=== PATIENT | male | born 1965 | race Caucasian/White ===

== ENCOUNTER 2018-03-17 11:21 | Day surgery (SDC) | payer MEDICAID ==
[2018-03-17] MEDS ORDERED: Sodium Chloride 0.9% 1,000 ML IV SCH (11:30)
[2018-03-17] MEDS ORDERED: Sodium Chloride 0.9% 10 ML Syringe FLUSH PRN (11:30)
[2018-03-17] MEDS ORDERED: Pantoprazole 40 MG Vial IVPUSH ONE (11:31)
[2018-03-17] MEDS ORDERED: Ondansetron 4 MG/2 ML SDV IVPUSH ONE (11:39)
--- NOTE | 2018-03-17 12:58 | EDM.PDOC ---
ED HPI GENERAL MEDICAL PROBLEM - General Chief Complaint: Chest Pain Stated Complaint: BLEEDING ULCERS Time Seen by Provider: 03/17/18 11:21 Source of Information: Reports: Patient, Family History Limitations: Reports: No Limitations - History of Present Illness INITIAL COMMENTS - FREE TEXT/NARRATIVE: 53 y.o.w.m with a H/O lower Esophageal ulcers, came to the ed due to black stool for a week with a distension of his abdomen. No pulsating mass. Pt denies ETOH but used drugs in the distant past. Pt was brought to the ED by his SO. Pt looks pale, denies h/o esophageal varicosis. Pt feels dizzy and light headed at times. He was on PPI, he did not take his meds for a while. No N/D. py feel dizzy at time c/o of CP going down his abdomen. Denies H/O AAA. has "cold feet" a times. No other acute medical issues BP 122/92 RR 19 Pulse ox 100% on RA Pulse 61 Temp 37.0 Onset Date: 03/12/18 Onset Time: 07:00 Duration: Day(s):, Intermittent Location: Reports: Abdomen Quality: Reports: Ache, Burning, Dull, Throbbing Severity: Moderate Improves with: Reports: Rest Worsens with: Reports: Movement Context: Reports: Other (H/O Upper GI bleed) Associated Symptoms: Reports: Other (distension pf abdomen, low BP) L anterior chest & abdomen Pain Score (Numeric/FACES): 3 - Related Data Allergies Allergy/AdvReac Type Severity Reaction Status Date / Time hydromorphone [From Dilaudid] Allergy Rash Verified 03/17/18 11:44 Home Meds: Home Meds Aspirin [Claudia Chewable] 81 mg PO DAILY PRN 03/17/18 [History] ED ROS GENERAL - Review of Systems Review Of Systems: See Below Constitutional: Reports: Weakness HEENT: Reports: No Symptoms Respiratory: Reports: No Symptoms Cardiovascular: Reports: Chest Pain Endocrine: Reports: No Symptoms GI/Abdominal: Reports: Abdominal Pain, Distension : Reports: No Symptoms Musculoskeletal: Reports: No Symptoms Skin: Reports: No Symptoms Neurological: Reports: No Symptoms Psychiatric: Reports: No Symptoms Hematologic/Lymphatic: Reports: No Symptoms Immunologic: Reports: No Symptoms ED EXAM, GENERAL - Physical Exam Exam: See Below Exam Limited By: No Limitations General Appearance: Alert, WD/WN, Moderate Distress Eye Exam: Bilateral Eye: Normal Inspection Ears: Normal External Exam Ear Exam: Bilateral Ear: Auricle Normal Nose: Normal Inspection, Normal Mucosa, No Blood Throat/Mouth: Normal Lips, Normal Voice, No Airway Compromise Head: Atraumatic, Normocephalic Neck: Normal Inspection, Supple, Non-Tender, Full Range of Motion Respiratory/Chest: No Respiratory Distress, Lungs Clear, Normal Breath Sounds, Chest Non-Tender Cardiovascular: Normal Peripheral Pulses, Regular Rate, Rhythm, No Edema, No Gallop, No JVD, No Murmur, No Rub Peripheral Pulses: 1+: Brachial (L) GI/Abdominal: Distended, Tender (Male) Exam: Deferred Rectal (Males) Exam: Black Stool Back Exam: Normal Inspection Extremities: Normal Inspection, Normal Range of Motion Neurological: Alert, Oriented Psychiatric: Normal Affect, Normal Mood Skin Exam: Warm, Dry, Intact, Pallor Lymphatic: No Adenopathy EKG INTERPRETATION EKG Date: 03/17/18 Time: 11:35 Rhythm: NSR Rate (Beats/Min): 87 [place]: Normal P-Wave: Present QRS: Normal ST-T: Normal QT: Normal Comparison: NA - No Prior EKG Course - Vital Signs Text/Narrative:: 53 y.o.w.m with a H/O lower Esophageal ulcers, came to the ed due to black stool for a week with a distension of his abdomen. No pulsating mass. Pt denies ETOH but used drugs in the distant past. Pt was brought to the ED by his SO. Pt looks pale, denies h/o esophageal varicosis. Pt feels dizzy and light headed at times. He was on PPI, he did not take his meds for a while. No N/D. py feel dizzy at time c/o of CP going down his abdomen. Denies H/O AAA. has "cold feet" a times. No other acute medical issues BP 122/92 RR 19 Pulse ox 100% on RA Pulse 61 Temp 37.0 PE: WNWD W M. Pale and weak apperaing Labs: HGB 6.9 HCT 22.5 WBC 11.5 BMP Nl except BUN is 24 Troponin 0.017 GFR > 60 Imaging: Chest/abdomen: 8 cm Hiatal hernia. No AAA Impression: Upper GI bleed, Hiatal hernia, noncompliance, Anemia Tx: Protonix, PRBC, NS, Zofran Reexam: Improved 12.55 pm Consultation: Dr. Beth, Surgeon: Will do an upper endoscopy at 3 pm today Plan: Pt was transferred to Dr. Beth for further care and orders addendum; Dr. Beth performed an upper GI endoscopy and did not see an active bleed but an ulcer at his gastro esophageal junction (please see his report). Pt came back to the ED, he received his second unit of PRBC here in te ED. His HGB was 8.1 2 hours after the 2 unis of blood were completed. Pt was doing fine in [facility] ed, Plan: D/C with instructions Computer is blocked, can not give written instruction! Gave service captain prescription for omeprazole. Last Recorded V/S: Last Vital Signs Temp 37.1 C 03/17/18 19:30 Pulse 77 03/17/18 19:30 Resp 16 03/17/18 17:31 BP 132/74 03/17/18 19:30 Pulse Ox 100 03/17/18 19:30 - Orders/Labs/Meds Orders: Active Orders 24 hr Category Date Time Status Patient Status [ADT] Routine ADT 03/17/18 15:00 Active EKG Documentation Completion [RC] ASDIRECTED Care 03/17/18 11:31 Active Patient to Empty Bladder [RC] ASDIRECTED Care 03/17/18 15:00 Active Verify Patient Consent Obtain [RC] ASDIRECTED Care 03/17/18 15:00 Active Nothing Per Oral Diet [DIET] Diet 03/17/18 Breakfast Ordered CTA Abd Pelv w Cont [CT] Stat Exams 03/17/18 15:01 Taken Lactated Ringers [Ringers, Lactated] 1,000 ml Med 03/17/18 15:00 Active IV ASDIRECTED Sodium Chloride 0.9% [Normal Saline] 1,000 ml Med 03/17/18 11:30 Active IV ASDIRECTED Sodium Chloride 0.9% [Normal Saline] 250 ml Med 03/17/18 14:30 Active IV ASDIRECTED Sodium Chloride 0.9% [Saline Flush] Med 03/17/18 11:30 Active 10 ml FLUSH ASDIRECTED PRN Peripheral IV Insertion Adult [OM.PC] Routine Oth 03/17/18 11:30 Ordered Resuscitation Status Routine Resus Stat 03/17/18 14:39 Ordered EKG 12 Lead [EK] Routine Ther 03/17/18 11:30 Ordered Medication Orders Sodium Chloride (Normal Saline) 1,000 mls @ 125 mls/hr IV ASDIRECTED TYRA Last Admin: 03/17/18 11:46 Dose: 125 mls/hr Sodium Chloride (Normal Saline) 250 mls @ 100 mls/hr IV ASDIRECTED TYRA Last Admin: 03/17/18 14:19 Dose: 100 mls/hr Lactated Ringer's (Ringers, Lactated) 1,000 mls @ 125 mls/hr IV ASDIRECTED TYRA Last Admin: 03/17/18 15:17 Dose: 125 mls/hr Sodium Chloride (Saline Flush) 10 ml FLUSH ASDIRECTED PRN PRN Reason: Keep Vein Open Last Admin: 03/17/18 14:28 Dose: 10 ml Labs: Laboratory Tests 03/17/18 03/17/18 03/17/18 Range/Units 11:55 11:55 11:55 WBC 11.4 (4.5-12.0) X10-3/uL RBC 3.15 L (4.30-5.75) x10(6)uL Hgb 6.9 L* (11.5-15.5) g/dL Hct 22.4 L (30.0-51.3) % MCV 70.9 L (80-96) fL MCH 21.8 L (27.7-33.6) pg MCHC 30.8 L (32.2-35.4) g/dL RDW 22.7 H (11.5-15.5) % Plt Count 687 H (125-369) X10(3)uL MPV 9.0 (7.4-10.4) fL Neut % (Auto) 79.7 (46-82) % Lymph % (Auto) 11.0 L (13-37) % [place] % (Auto) 7.0 (4-12) % Eos % (Auto) 2 (1.0-5.0) % Baso % (Auto) 1 (0-2) % Neut # (Auto) 9.0 H (1.6-8.3) # Lymph # (Auto) 1.3 (0.6-5.0) # [place] # (Auto) 0.8 (0.0-1.3) # Eos # (Auto) 0.2 (0.0-0.8) # Baso # (Auto) 0.1 (0.0-0.2) # PT 9.8 (8.7-11.1) INR 1.01 (0.89-1.13) Sodium 140 (135-145) mmol/L Potassium 4.3 (3.5-5.3) mmol/L Chloride 105 (100-110) mmol/L Carbon Dioxide 27 (21-32) mmol/L BUN 24 H (7-18) mg/dL Creatinine 1.0 (0.70-1.30) mg/dL Est Cr Clr Drug Dosing TNP Estimated GFR (MDRD) > 60 (>60) BUN/Creatinine Ratio 24.0 H (9-20) Glucose 96 (80-116) mg/dL Calcium 8.6 (8.6-10.2) mg/dL Total Bilirubin (0.1-1.3) mg/dL Direct Bilirubin (0.10-0.20) mg/dL AST (5-25) IU/L ALT (12-36) U/L Alkaline Phosphatase (56-112) IU/L Troponin I (<0.017-0.056) ng/mL Total Protein (6.0-8.0) g/dL Albumin (3.5-5.2) g/dL Amylase (25-115) U/L Urine Color (YELLOW) Urine Appearance (CLEAR) Urine pH (5.0-6.5) Ur Specific [place] (1.010-1.025) Urine Protein (NEGATIVE) mg/dL Urine Glucose (UA) (NEGATIVE) mg/dL Urine Ketones (NEGATIVE) mg/dL Urine Occult Blood (NEGATIVE) Urine Nitrite (NEGATIVE) Urine Bilirubin (NEGATIVE) Urine Urobilinogen (NEGATIVE) mg/dL Ur Leukocyte Esterase (NEGATIVE) Urine RBC (0) Urine WBC (0) Ur Squamous Epith Cells (NS,R,O) Urine Bacteria (NS) Hyaline Casts (NS) Blood Type Gel Antibody Screen Crossmatch 03/17/18 03/17/18 03/17/18 Range/Units 11:55 11:55 11:55 WBC (4.5-12.0) X10-3/uL RBC (4.30-5.75) x10(6)uL Hgb (11.5-15.5) g/dL Hct (30.0-51.3) % MCV (80-96) fL MCH (27.7-33.6) pg MCHC (32.2-35.4) g/dL RDW (11.5-15.5) % Plt Count (125-369) X10(3)uL MPV (7.4-10.4) fL Neut % (Auto) (46-82) % Lymph % (Auto) (13-37) % [place] % (Auto) (4-12) % Eos % (Auto) (1.0-5.0) % Baso % (Auto) (0-2) % Neut # (Auto) (1.6-8.3) # Lymph # (Auto) (0.6-5.0) # [place] # (Auto) (0.0-1.3) # Eos # (Auto) (0.0-0.8) # Baso # (Auto) (0.0-0.2) # PT (8.7-11.1) INR (0.89-1.13) Sodium (135-145) mmol/L Potassium (3.5-5.3) mmol/L Chloride (100-110) mmol/L Carbon Dioxide (21-32) mmol/L BUN (7-18) mg/dL Creatinine (0.70-1.30) mg/dL Est Cr Clr Drug Dosing Estimated GFR (MDRD) (>60) BUN/Creatinine Ratio (9-20) Glucose (80-116) mg/dL Calcium (8.6-10.2) mg/dL Total Bilirubin 0.2 (0.1-1.3) mg/dL Direct Bilirubin 0.06 L (0.10-0.20) mg/dL AST 14 (5-25) IU/L ALT 17 (12-36) U/L Alkaline Phosphatase 63 (56-112) IU/L Troponin I < 0.017 L (<0.017-0.056) ng/mL Total Protein 7.3 (6.0-8.0) g/dL Albumin 3.6 (3.5-5.2) g/dL Amylase 47 (25-115) U/L Urine Color (YELLOW) Urine Appearance (CLEAR) Urine pH (5.0-6.5) Ur Specific [place] (1.010-1.025) Urine Protein (NEGATIVE) mg/dL Urine Glucose (UA) (NEGATIVE) mg/dL Urine Ketones (NEGATIVE) mg/dL Urine Occult Blood (NEGATIVE) Urine Nitrite (NEGATIVE) Urine Bilirubin (NEGATIVE) Urine Urobilinogen (NEGATIVE) mg/dL Ur Leukocyte Esterase (NEGATIVE) Urine RBC (0) Urine WBC (0) Ur Squamous Epith Cells (NS,R,O) Urine Bacteria (NS) Hyaline Casts (NS) Blood Type A POSITIVE Gel Antibody Screen Negative Crossmatch See Detail 03/17/18 03/17/18 Range/Units 16:07 22:00 WBC 8.9 (4.5-12.0) X10-3/uL RBC 3.40 L (4.30-5.75) x10(6)uL Hgb 8.1 L (11.5-15.5) g/dL Hct 25.7 L (30.0-51.3) % MCV 75.6 L (80-96) fL MCH 23.9 L (27.7-33.6) pg MCHC 31.6 L (32.2-35.4) g/dL RDW 23.1 H (11.5-15.5) % Plt Count 542 H (125-369) X10(3)uL MPV (7.4-10.4) fL Neut % (Auto) (46-82) % Lymph % (Auto) (13-37) % [place] % (Auto) (4-12) % Eos % (Auto) (1.0-5.0) % Baso % (Auto) (0-2) % Neut # (Auto) (1.6-8.3) # Lymph # (Auto) (0.6-5.0) # [place] # (Auto) (0.0-1.3) # Eos # (Auto) (0.0-0.8) # Baso # (Auto) (0.0-0.2) # PT (8.7-11.1) INR (0.89-1.13) Sodium (135-145) mmol/L Potassium (3.5-5.3) mmol/L Chloride (100-110) mmol/L Carbon Dioxide (21-32) mmol/L BUN (7-18) mg/dL Creatinine (0.70-1.30) mg/dL Est Cr Clr Drug Dosing Estimated GFR (MDRD) (>60) BUN/Creatinine Ratio (9-20) Glucose (80-116) mg/dL Calcium (8.6-10.2) mg/dL Total Bilirubin (0.1-1.3) mg/dL Direct Bilirubin (0.10-0.20) mg/dL AST (5-25) IU/L ALT (12-36) U/L Alkaline Phosphatase (56-112) IU/L Troponin I (<0.017-0.056) ng/mL Total Protein (6.0-8.0) g/dL Albumin (3.5-5.2) g/dL Amylase (25-115) U/L Urine Color Yellow (YELLOW) Urine Appearance Clear (CLEAR) Urine pH 5.0 (5.0-6.5) Ur Specific [place] 1.020 (1.010-1.025) Urine Protein Negative (NEGATIVE) mg/dL Urine Glucose (UA) Normal (NEGATIVE) mg/dL Urine Ketones Negative (NEGATIVE) mg/dL Urine Occult Blood Negative (NEGATIVE) Urine Nitrite Negative (NEGATIVE) Urine Bilirubin Negative (NEGATIVE) Urine Urobilinogen Normal (NEGATIVE) mg/dL Ur Leukocyte Esterase Negative (NEGATIVE) Urine RBC 0-5 (0) Urine WBC 0-5 (0) Ur Squamous Epith Cells Few H (NS,R,O) Urine Bacteria Few H (NS) Hyaline Casts Few H (NS) Blood Type Gel Antibody Screen Crossmatch Meds: Medications Generic Name Dose Route Start Last Admin Trade Name Freq PRN Reason Stop Dose Admin Sodium Chloride 1,000 mls @ 125 mls/hr 03/17/18 11:30 03/17/18 11:46 Normal Saline IV 125 mls/hr ASDIRECTED TYRA Administration Sodium Chloride 250 mls @ 100 mls/hr 03/17/18 14:30 03/17/18 14:19 Normal Saline IV 100 mls/hr ASDIRECTED TYRA Administration Lactated Ringer's 1,000 mls @ 125 mls/hr 03/17/18 15:00 03/17/18 15:17 Ringers, Lactated IV 125 mls/hr ASDIRECTED TYRA Administration Sodium Chloride 10 ml 03/17/18 11:30 03/17/18 14:28 Saline Flush FLUSH 10 ml ASDIRECTED PRN Administration Keep Vein Open Discontinued Medications Generic Name Dose Route Start Last Admin Trade Name Michaelq PRN Reason Stop Dose Admin Iopamidol 100 ml 03/17/18 14:41 03/17/18 14:46 Isovue-370 (76%) IV 03/17/18 14:42 93 ml ONETIME ONE Administration Ondansetron HCl 8 mg 03/17/18 11:39 03/17/18 11:50 Zofran IVPUSH 03/17/18 11:40 8 mg ONETIME ONE Administration Pantoprazole Sodium 80 mg 03/17/18 11:31 03/17/18 11:41 Protonix Iv IVPUSH 03/17/18 11:32 80 mg .BOLUS ONE Administration Departure - Departure Time of Disposition: 22:49 Disposition: Home, Self-Care 01 Condition: Good Clinical Impression: Esophageal ulcer Qualifiers: Esophageal ulcer bleeding: without bleeding Qualified Code(s): K22.10 - Ulcer of esophagus without bleeding - My Orders Last 24 Hours: My Active Orders 03/17/18 11:30 Sodium Chloride 0.9% [Normal Saline] 1,000 ml IV ASDIRECTED Sodium Chloride 0.9% [Saline Flush] 10 ml FLUSH ASDIRECTED PRN Peripheral IV Insertion Adult [OM.PC] Routine EKG 12 Lead [EK] Routine 03/17/18 11:31 EKG Documentation Completion [RC] ASDIRECTED 03/17/18 14:30 Sodium Chloride 0.9% [Normal Saline] 250 ml IV ASDIRECTED 03/17/18 15:01 CTA Abd Pelv w Cont [CT] Stat - Assessment/Plan Last 24 Hours: My Active Orders 03/17/18 11:30 Sodium Chloride 0.9% [Normal Saline] 1,000 ml IV ASDIRECTED Sodium Chloride 0.9% [Saline Flush] 10 ml FLUSH ASDIRECTED PRN Peripheral IV Insertion Adult [OM.PC] Routine EKG 12 Lead [EK] Routine 03/17/18 11:31 EKG Documentation Completion [RC] ASDIRECTED 03/17/18 14:30 Sodium Chloride 0.9% [Normal Saline] 250 ml IV ASDIRECTED 03/17/18 15:01 CTA Abd Pelv w Cont [CT] Stat
[2018-03-17] MEDS ORDERED: Sodium Chloride 0.9% 250 ML IV SCH (14:30)
[2018-03-17] MEDS ORDERED: Iopamidol 755 Mg/ML 100 ML Bottle IV ONE (14:41)
--- NOTE | 2018-03-17 14:57 | CR ---
INDICATION: Upper GI bleed. CHEST, ONE VIEW, FRONTAL: An AP upright view of the chest was obtained - no comparisons. There is what appears to be a large fixed hiatal hernia, which measures approximately 87 mm craniocaudad by 122 mm transversely. The heart is generous in size and may be slightly enlarged. Overlying EKG leads are noted. An active infiltrate or effusion was not identified. No free air is noted under the hemidiaphragm leaves. IMPRESSION: 1. No acute process. 2. Large fixed hiatal hernia. MTDD
[2018-03-17] MEDS ORDERED: Lactated Ringers 1,000 ML IV SCH (15:00)
[2018-03-17] MEDS ORDERED: Lidocaine 2% 100 MG/5 ML Syringe IVPUSH ONE (15:01)
[2018-03-17] MEDS ORDERED: Propofol 200 MG/20 ML SDV IV ONE (15:01)
--- NOTE | 2018-03-17 15:46 | PCM.OPNOTE ---
- General Post-Op/Procedure Note Date of Surgery/Procedure: 03/17/18 Operative Procedure(s): EGD with Bx Anesthesia Technique: MAC Primary Surgeon: El Beth EBL in mLs: 0 Complications: None Condition: Good Free Text/Narrative:: Intake & Output 03/17/18 03/17/18 03/17/18 06:59 14:59 22:59 Intake Total 0 Balance 0
--- NOTE | 2018-03-17 23:36 | OR ---
DATE OF OPERATION: 03/17/2018 SURGEON: El Beth MD PREOPERATIVE DIAGNOSIS: Anemia with melena. POSTOPERATIVE DIAGNOSES: 1. Gastric ulcers. 2. Large hiatal hernia. PROCEDURE: Esophagogastroduodenoscopy with biopsy. ANESTHESIA: IV sedation. HISTORY: This 53-year-old gentleman presented to the emergency room with anemia and melena. I reviewed his records at [facility] and he has had 4 previous endoscopies. Ulcers have been noted at the lesser curvature in the past. H. pylori has been negative on 2 biopsies. He has been on antacid medication, but stops this and thinks to be the source of his recurrence. He does not use nonsteroidal anti-inflammatories. Upper endoscopy was recommended. I reviewed the risks and complications, and informed consent was obtained. DESCRIPTION OF PROCEDURE: The patient was brought to the procedure room, where he was placed on his left side and IV sedation administered. Oral bite block was placed and the upper endoscope advanced into the esophagus under direct vision without difficulty. Vocal cords were viewed and were normal. Scope was advanced through the esophagus into a large hiatal hernia. I then advanced the scope to the third portion of the duodenum. The duodenum and pylorus were normal. In the distal antrum in the pre-pyloric region, there was a small 5 mm superficial ulceration without active bleeding. On the lesser curvature there was a large 1 cm diameter ulcer with a heaped-up edges. The ulcer was necrotic at its base. There was no visible vessel or evidence of clot or recent bleeding. The body of the stomach including the hiatal hernia portion has many superficial gastric ulcers. None of these had evidence of recent or active bleeding. I did take 2 biopsies from the antrum to check for Helicobacter pylori. Air was removed from the stomach and the scope was withdrawn through the remaining esophagus, which appears normal. The patient tolerated the procedure well and returned back to the emergency room in stable condition. He will finish his blood transfusions and recommend that he be restarted on his antacid medications. I will contact him with the pathology report when it returns. /[id number] JOSSIE/KAYODE
--- NOTE | 2018-03-20 08:16 | CT ---
INDICATION: Pain, distention, rule out AAA. CT ABDOMEN AND PELVIS WITH IV CONTRAST: Spiral 2.5 mm axial sections were obtained through the abdomen and pelvis with 93 mL Isovue 370 at 2.7 mL/second, with sagittal and coronal reconstructions, 03/17/18 - no comparisons available. Total exam DLP = 961.73 mGy-cm. The thoracic and abdominal aorta were normal in caliber without evidence of dissection or obstruction. No gross calcifications were seen. The heart is normal in size. No pericardial effusion was seen. No active infiltrate or effusion was identified. There is, however, noted a large fixed hiatal hernia, which measured transversely a maximum of approximately 8 cm, and in the sagittal projection, it measured approximately 62 x 73 mm. Bony structures appeared to be grossly intact, except for degenerative changes at the thoracolumbar spine with disk disease. No organomegaly was suggested. There is a probable benign cystic structure at the medial anterior right lobe of the liver with no gallstones demonstrated. The spleen and pancreas were unremarkable. There is a small low density abnormality at the posterior low middle pole of the right kidney, likely representing a small scar. There are other irregularities of the renal cortices, compatible with minimal scarring also. No evidence of obstructive uropathy or definite calculi could be identified. No significant appearing renal mass was seen. No retroperitoneal mass was identified. What may be clips are noted in the area of the cecum, possibly related to appendectomy - correlate clinically. No free air or bowel obstruction was suggested. IMPRESSION: 1. Large fixed hiatal hernia. 2. No evidence of AAA or dissection. 3. Minimal renal cortical scarring. 4. Suggestion of appendectomy - correlate clinically. Report was called to Dr. Noel at 1510 hours on 03/17/18. [facility]
== END 2018-03-17 23:53 | disposition home or self-care (01) ==
LOC: FB.ED 11:21 → FB.SDS 15:00
PROVIDERS: ATTEND Emergency Medicine
DX: K25.4 Chronic or unspecified gastric ulcer with hemorrhage (principal); K31.9 Disease of stomach and duodenum, unspecified; D64.9 Anemia, unspecified; F17.210 Nicotine dependence, cigarettes, uncomplicated; K44.9 Diaphragmatic hernia without obstruction or gangrene; Z79.82 Long term (current) use of aspirin; Z79.899 Other long term (current) drug therapy; Z88.5 Allergy status to narcotic agent
CPT/HCPCS: 36415; 36430; 43239; 71045; 74174; 80048; 80076; 81001; 82150; 84484; 85025; 85027; 85610; 86850; 86900; 86901; 86920; 86922; 88305; 93005; 96361; 96374; 96375; 99285; C9113; J2001; J2405; J2704; J7030; J7050; J7120; P9016; Q9967

== ENCOUNTER 2018-03-27 14:28 | Emergency (ER) | payer MEDICAID ==
[2018-03-27] MEDS ORDERED: Sodium Chloride 0.9% 10 ML Syringe FLUSH PRN (15:00)
[2018-03-27] MEDS ORDERED: Pantoprazole 40 MG Vial IVPUSH ONE (15:38)
--- NOTE | 2018-03-27 15:43 | EDM.PDOC ---
ED HPI GENERAL MEDICAL PROBLEM - General Chief Complaint: Abdominal Pain Stated Complaint: ULCER- SOB Time Seen by Provider: 03/27/18 15:00 Source of Information: Reports: Patient History Limitations: Reports: No Limitations - History of Present Illness INITIAL COMMENTS - FREE TEXT/NARRATIVE: Presents with worsening RUQ abdominal pain radiating to chest and lower abdomen associated with exertional dyspnea and nausea. Onset of symptoms 2 months ago, progressively worsening over the last 3 days. Stools have been dark. EGD on revealed multiple gastric ulcers, was transfused with 2 units PRBCs at that time. Pathology was negative for H. pylori. Denies ASA or NSAID use. Has been taking Omeprazole as directed. 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 Reports having Hx of EGD procedure x5. Psychiatric History: Reports: Depression Hematologic History: Reports: Anemia, Blood Transfusion(s) - Past Surgical History GI Surgical History: Reports: Colonoscopy, EGD Social & Family History - Family History Family Medical History: Noncontributory - Tobacco Use Tobacco Use Within Last Twelve Months: No - Caffeine Use Caffeine Use: Reports: Soda - Alcohol Use Alcohol Use History: No ED ROS GENERAL - Review of Systems Review Of Systems: ROS reveals no pertinent complaints other than HPI. ED EXAM, GI/ABD - Physical Exam Exam: See Below Exam Limited By: No Limitations General Appearance: Alert, WD/WN, No Apparent Distress Ears: Normal External Exam Nose: Normal Inspection Throat/Mouth: No Airway Compromise Head: Atraumatic, Normocephalic Neck: Full Range of Motion Respiratory/Chest: No Respiratory Distress, Lungs Clear, Normal Breath Sounds Cardiovascular: Regular Rate, Rhythm, No Murmur GI/Abdominal Exam: Normal Bowel Sounds, Soft, Tender (generalized, worse RUQ) Extremities: Normal Range of Motion Neurological: Alert, Normal Cognition Psychiatric: Normal Affect, Normal Mood Skin Exam: Warm, Dry, Intact EKG INTERPRETATION EKG Date: 03/27/18 Time: 15:06 Rhythm: NSR Rate (Beats/Min): 87 [place]: Normal P-Wave: Present QRS: Normal ST-T: Normal QT: Normal Course - Vital Signs Last Recorded V/S: Last Vital Signs Temp 37.0 C 03/27/18 17:51 Pulse 69 03/27/18 17:51 Resp 18 03/27/18 17:51 BP 141/84 H 03/27/18 17:51 Pulse Ox - Orders/Labs/Meds Orders: Active Orders 24 hr Category Date Time Status EKG Documentation Completion [RC] ASDIRECTED Care 03/27/18 14:54 Active Abdomen Pelvis w Cont [CT] Stat Exams 03/27/18 15:35 Taken CXR [Chest 2V] [CR] Stat Exams 03/27/18 15:49 Taken HEMOGLOBIN/HEMATOCRIT,HH [HEME] Timed Lab 03/27/18 19:15 Ordered PATIENT RETYPE [BBK] Stat Lab 03/27/18 15:05 Results RED BLOOD CELLS LP [BBK] Stat Lab 03/27/18 15:05 Results TYPE AND SCREEN [BBK] Stat Lab 03/27/18 15:05 Results Pantoprazole [ProTONIX IV] 80 mg Med 03/27/18 15:45 Active Sodium Chloride 0.9% [Normal Saline] 100 ml IV .Continuous Sodium Chloride 0.9% [Normal Saline] 250 ml Med 03/27/18 15:45 Active IV ASDIRECTED Sodium Chloride 0.9% [Saline Flush] Med 03/27/18 15:00 Active 10 ml FLUSH ASDIRECTED PRN Saline Lock Insert [OM.PC] Routine Oth 03/27/18 15:00 Ordered Transfuse PRBC [Transfuse Red Blood Cells] [COMM] Stat Oth 03/27/18 15:34 Ordered EKG 12 Lead [EK] Stat Ther 03/27/18 14:53 Ordered Medication Orders Sodium Chloride (Normal Saline) 250 mls @ 100 mls/hr IV ASDIRECTED TYRA Last Admin: 03/27/18 16:47 Dose: 10 mls/hr Pantoprazole Sodium 80 mg/ (Sodium Chloride) 100 mls @ 10 mls/hr IV .Continuous TYRA Last Admin: 03/27/18 16:46 Dose: 10 mls/hr Sodium Chloride (Saline Flush) 10 ml FLUSH ASDIRECTED PRN PRN Reason: Keep Vein Open Labs: Laboratory Tests 03/27/18 03/27/18 03/27/18 Range/Units 15:05 15:05 15:05 WBC 11.6 (4.5-12.0) X10-3/uL RBC 3.24 L (4.30-5.75) x10(6)uL Hgb 7.3 L (11.5-15.5) g/dL Hct 23.4 L (30.0-51.3) % MCV 72.2 L (80-96) fL MCH 22.6 L (27.7-33.6) pg MCHC 31.3 L (32.2-35.4) g/dL RDW 24.6 H (11.5-15.5) % Plt Count 434 H (125-369) X10(3)uL MPV 9.2 (7.4-10.4) fL Add Manual Diff Yes Neutrophils % (Manual) 64 (46-82) % Lymphocytes % (Manual) 23 (13-37) % Monocytes % (Manual) 10 (4-12) % Eosinophils % (Manual) 3 (0-5) % Hypochromasia Few Anisocytosis Moderate H Microcytosis Moderate H PT 9.4 (8.7-11.1) INR 0.97 (0.89-1.13) Sodium 139 (135-145) mmol/L Potassium 4.2 (3.5-5.3) mmol/L Chloride 103 (100-110) mmol/L Carbon Dioxide 28 (21-32) mmol/L BUN 26 H (7-18) mg/dL Creatinine 1.3 (0.70-1.30) mg/dL Est Cr Clr Drug Dosing TNP Estimated GFR (MDRD) 58 L (>60) BUN/Creatinine Ratio 20.0 (9-20) Glucose 95 (80-116) mg/dL Calcium 8.9 (8.6-10.2) mg/dL Total Bilirubin 0.2 (0.1-1.3) mg/dL AST 10 D (5-25) IU/L ALT 18 (12-36) U/L Alkaline Phosphatase 56 (56-112) IU/L Troponin I (<0.017-0.056) ng/mL Total Protein 7.4 (6.0-8.0) g/dL Albumin 3.6 (3.5-5.2) g/dL Globulin 3.8 g/dL Albumin/Globulin Ratio 1.0 Amylase 58 (25-115) U/L Urine Color (YELLOW) Urine Appearance (CLEAR) Urine pH (5.0-6.5) Ur Specific Shiro (1.010-1.025) Urine Protein (NEGATIVE) mg/dL Urine Glucose (UA) (NEGATIVE) mg/dL Urine Ketones (NEGATIVE) mg/dL Urine Occult Blood (NEGATIVE) Urine Nitrite (NEGATIVE) Urine Bilirubin (NEGATIVE) Urine Urobilinogen (NEGATIVE) mg/dL Ur Leukocyte Esterase (NEGATIVE) Urine RBC (0) Urine WBC (0) Ur Squamous Epith Cells (NS,R,O) Urine Bacteria (NS) Blood Type Gel Antibody Screen Crossmatch 03/27/18 03/27/18 03/27/18 Range/Units 15:05 15:05 15:13 WBC (4.5-12.0) X10-3/uL RBC (4.30-5.75) x10(6)uL Hgb (11.5-15.5) g/dL Hct (30.0-51.3) % MCV (80-96) fL MCH (27.7-33.6) pg MCHC (32.2-35.4) g/dL RDW (11.5-15.5) % Plt Count (125-369) X10(3)uL MPV (7.4-10.4) fL Add Manual Diff Neutrophils % (Manual) (46-82) % Lymphocytes % (Manual) (13-37) % Monocytes % (Manual) (4-12) % Eosinophils % (Manual) (0-5) % Hypochromasia Anisocytosis Microcytosis PT (8.7-11.1) INR (0.89-1.13) Sodium (135-145) mmol/L Potassium (3.5-5.3) mmol/L Chloride (100-110) mmol/L Carbon Dioxide (21-32) mmol/L BUN (7-18) mg/dL Creatinine (0.70-1.30) mg/dL Est Cr Clr Drug Dosing Estimated GFR (MDRD) (>60) BUN/Creatinine Ratio (9-20) Glucose (80-116) mg/dL Calcium (8.6-10.2) mg/dL Total Bilirubin (0.1-1.3) mg/dL AST (5-25) IU/L ALT (12-36) U/L Alkaline Phosphatase (56-112) IU/L Troponin I < 0.017 L (<0.017-0.056) ng/mL Total Protein (6.0-8.0) g/dL Albumin (3.5-5.2) g/dL Globulin g/dL Albumin/Globulin Ratio Amylase (25-115) U/L Urine Color Yellow (YELLOW) Urine Appearance Clear (CLEAR) Urine pH 5.0 (5.0-6.5) Ur Specific Shiro 1.025 (1.010-1.025) Urine Protein Negative (NEGATIVE) mg/dL Urine Glucose (UA) Normal (NEGATIVE) mg/dL Urine Ketones Negative (NEGATIVE) mg/dL Urine Occult Blood Negative (NEGATIVE) Urine Nitrite Negative (NEGATIVE) Urine Bilirubin Negative (NEGATIVE) Urine Urobilinogen Normal (NEGATIVE) mg/dL Ur Leukocyte Esterase Negative (NEGATIVE) Urine RBC 0-5 (0) Urine WBC 0-5 (0) Ur Squamous Epith Cells Rare (NS,R,O) Urine Bacteria Occasional H (NS) Blood Type A POSITIVE Gel Antibody Screen Negative Crossmatch See Detail Meds: Medications Generic Name Dose Route Start Last Admin Trade Name Freq PRN Reason Stop Dose Admin Sodium Chloride 250 mls @ 100 mls/hr 03/27/18 15:45 03/27/18 16:47 Normal Saline IV 10 mls/hr ASDIRECTED TYRA Administration Pantoprazole Sodium 80 mg/ 100 mls @ 10 mls/hr 03/27/18 15:45 03/27/18 16:46 Sodium Chloride IV 10 mls/hr .Continuous TYRA Administration Sodium Chloride 10 ml 03/27/18 15:00 Saline Flush FLUSH ASDIRECTED PRN Keep Vein Open Discontinued Medications Generic Name Dose Route Start Last Admin Trade Name Freq PRN Reason Stop Dose Admin Iopamidol 100 ml 03/27/18 16:52 03/27/18 17:09 Isovue-370 (76%) IV 03/27/18 16:53 93 ml ONETIME ONE Administration Pantoprazole Sodium 80 mg 03/27/18 15:38 03/27/18 16:00 Protonix Iv IVPUSH 03/27/18 15:39 80 mg .BOLUS ONE Administration - Radiology Interpretation Free Text/Narrative:: CXR: NAD (ED provider interpretation). CT Abd/Pelvis w/ IV contrast: No free air, no bowel obstruction, hiatal hernia has increased in size and is now effacing the left ventricle (verbal report from Dr. Dietrich). CT Results Date: 03/27/18 CT Results Time: 17:12 - Re-Assessments/Exams Free Text/Narrative Re-Assessment/Exam: 03/27/18 18:[address] Rivers, he recommends [facility] transfer for Gastroenterology consult. Dr. Cassidy ([facility]) recommends hemoglobin draw after the first unit of PRBC, and call back with results. He will not accept patient for transfer until this is done. 03/27/18 19:00 Patient care transferred to Dr. Noel at 1900. 03/27/18 18:31 Departure - Departure Time of Disposition: 19:00 Disposition: Still A Patient 30 Clinical Impression: Upper gastrointestinal hemorrhage, Anemia due to blood loss, acute - Discharge Information *PRESCRIPTION DRUG MONITORING PROGRAM REVIEWED*: No *COPY OF PRESCRIPTION DRUG MONITORING REPORT IN PATIENT DANE: Not Applicable Referrals: PCP,None [Primary Care Provider] - Forms: ED Department Discharge - My Orders Last 24 Hours: My Active Orders 03/27/18 14:53 EKG 12 Lead [EK] Stat 03/27/18 14:54 EKG Documentation Completion [RC] ASDIRECTED 03/27/18 15:00 Sodium Chloride 0.9% [Saline Flush] 10 ml FLUSH ASDIRECTED PRN Saline Lock Insert [OM.PC] Routine 03/27/18 15:05 PATIENT RETYPE [BBK] Stat RED BLOOD CELLS LP [BBK] Stat TYPE AND SCREEN [BBK] Stat 03/27/18 15:34 Transfuse PRBC [Transfuse Red Blood Cells] [COMM] Stat 03/27/18 15:35 Abdomen Pelvis w Cont [CT] Stat 03/27/18 15:45 Pantoprazole [ProTONIX IV] 80 mg Sodium Chloride 0.9% [Normal Saline] 100 ml IV .Continuous Sodium Chloride 0.9% [Normal Saline] 250 ml IV ASDIRECTED 03/27/18 15:49 CXR [Chest 2V] [CR] Stat 03/27/18 19:15 HEMOGLOBIN/HEMATOCRIT,HH [HEME] Timed - Assessment/Plan Last 24 Hours: My Active Orders 03/27/18 14:53 EKG 12 Lead [EK] Stat 03/27/18 14:54 EKG Documentation Completion [RC] ASDIRECTED 03/27/18 15:00 Sodium Chloride 0.9% [Saline Flush] 10 ml FLUSH ASDIRECTED PRN Saline Lock Insert [OM.PC] Routine 03/27/18 15:05 PATIENT RETYPE [BBK] Stat RED BLOOD CELLS LP [BBK] Stat TYPE AND SCREEN [BBK] Stat 03/27/18 15:34 Transfuse PRBC [Transfuse Red Blood Cells] [COMM] Stat 03/27/18 15:35 Abdomen Pelvis w Cont [CT] Stat 03/27/18 15:45 Pantoprazole [ProTONIX IV] 80 mg Sodium Chloride 0.9% [Normal Saline] 100 ml IV .Continuous Sodium Chloride 0.9% [Normal Saline] 250 ml IV ASDIRECTED 03/27/18 15:49 CXR [Chest 2V] [CR] Stat 03/27/18 19:15 HEMOGLOBIN/HEMATOCRIT,HH [HEME] Timed
[2018-03-27] MEDS ORDERED: Pantoprazole 80 MG in Sodium Chloride 0.9% 100 ML IV SCH (15:45)
[2018-03-27] MEDS ORDERED: Sodium Chloride 0.9% 250 ML IV SCH (15:45)
[2018-03-27] MEDS ORDERED: Iopamidol 755 Mg/ML 100 ML Bottle IV ONE (16:52)
[2018-03-27] MEDS ORDERED: fentaNYL 100 MCG/2 ML SDV IVPUSH ONE (18:59)
--- NOTE | 2018-03-28 10:35 | CT ---
INDICATION: Abdominal pain, history of gastric ulcer, question perforated ulcer. CT ABDOMEN AND PELVIS WITH CONTRAST: Spiral 3.75 mm images of the abdomen were obtained axially with sagittal and coronal reconstructions, 03/27/18 and compared with 03/17/18. Total exam DLP = 921.55 mGy-cm. Lower lung ribeiro and pleural spaces visualized were essentially unchanged with no acute process. The heart did not appear enlarged but did appear to be impressed upon at the level of the left ventricle by an enlarging large fixed hiatal hernia. Slight effacement of the left ventricle in that area of contact is suggested. The upper abdominal organs again appeared essentially normal with relatively minimal findings - very minimal renal cortical scarring and tiny probable cyst of the posterior lower pole cortex of the left kidney. Appendectomy is again suggested. No retroperitoneal mass was seen. No evidence of free air or obstruction or perforation is identified. A tiny fixed inguinal hernia is noted on the left, including only fat. A calcification is noted in the prostate, which did not appear to be grossly enlarged. The urinary bladder is unremarkable. No organomegaly, mass lesions, or free fluid collections were identified in the abdomen or pelvis otherwise. IMPRESSION: 1. No evidence of definite perforation was identified. No free air or free fluid was seen in the pelvis or abdomen. 2. Enlarging fixed hiatal hernia, which now appears to be effacing the left ventricle slightly . 3. Post appendectomy. 4. Minimal renal cortical scarring. 5. Tiny left renal cyst suggested - too small to characterize accurately. 6. Tiny inguinal hernia, including only fat, on the left. Report was called to Dr. Holley at 1755 hours on 03/27/18. [facility] HOSPITALFranky
--- NOTE | 2018-03-28 10:45 | CR ---
INDICATION: Chest pain. CHEST: PA and lateral views of the chest were obtained 03/27/18 and compared with 03/17/18, again revealing a large fixed hiatal hernia, which may be slightly increased in size, compared with the previous study. The heart did not appear enlarged. The aorta is tortuous with calcification in the arch minimally. A definite active infiltrate or effusion was not identified. IMPRESSION: 1. Large fixed hiatal hernia may be slightly increased in size, compared with previous study. 2. Mild ASD aorta. 3. No acute process. MTDD
== END 2018-03-27 20:50 ==
LOC: FB.ED 14:28
DX: K92.2 Gastrointestinal hemorrhage, unspecified (principal); D62 Acute posthemorrhagic anemia; K21.9 Gastro-esophageal reflux disease without esophagitis; Z88.5 Allergy status to narcotic agent; Z79.899 Other long term (current) drug therapy
CPT/HCPCS: 36415; 36430; 71046; 74177; 80053; 81001; 82150; 84484; 85014; 85018; 85025; 85610; 86850; 86900; 86901; 86920; 86922; 93005; 96365; 96366; 96376; 99285; C9113; J3010; J7030; J7050; P9016; Q9967